=== PATIENT | female | born 1940 | race Caucasian/White ===

== ENCOUNTER → 2019-12-10 11:56 | Outpatient (CLI) | payer MEDICARE, SELFPAY ==
[2019-12-11 20:11] LABS: COVID19 Sendout Not Detected (Not Detect)
== END ==
PROVIDERS: PCP Internal Medicine; Visit Provider Physician Assistant
DX: Z11.59 Encounter for screening for other viral diseases (principal)
CPT/HCPCS: 87635

== ENCOUNTER 2019-12-13 09:49 | Outpatient (CLI) | payer MEDICARE, SELFPAY ==
[2019-12-13] VITALS (8 sets, daily range): BP systolic 140–156; BP diastolic 64–78; PULSE 55–67; RESP 8–18; O2SAT 99–100
--- NOTE | 2019-12-13 09:53 | DI.RAD.S_ITS ---
PROCEDURE: PAIN L/S FACET INJ/BLK 1ST LILO COMPARISON: [facility], RG, MRI L-SPINE W/O CONTRAST, 08/24/2019, 14:58. INDICATIONS: SPONDYLOSIS FINDINGS: These fluoroscopic images were performed for intraoperative localization. On these images, bilateral spinal needles can be seen at the L4-L5 and L5-S1 levels. The appropriate position of the tips of the needles was confirmed by injection of a small amount of iodinated contrast. IMPRESSION: Intraprocedural examination within normal limits. Dictated by: Braxton Main M.D. on 12/13/2019 at 10:50 Approved by: Braxton Main M.D. on 12/13/2019 at 10:52
[2019-12-13] MEDS: fentaNYL 100 MCG/2 ML INJ 50 MCG IV (11:09)
[2019-12-13] MEDS: MIDAZOLAM 5 MG/5 ML VIAL IV (11:09)
[2019-12-13] MEDS: IOPAMIDOL 15 ML VIAL 3 ML INJ (11:21)
[2019-12-13] MEDS: LIDOCAINE 1% 20 ML 10 ML INJ (11:22)
[2019-12-13] MEDS: BETAMETHASONE 30 MG/5 ML MDV 12 MG INJ (11:22)
[2019-12-13] MEDS: BUPIVACAINE 0.5% (PF) VIAL 2 ML INJ (11:22)
--- NOTE | 2019-12-13 11:26 | P.PCN_ITS ---
Date/Time/Diagnoses Date of procedure: 12/13/19 Time of procedure: 11:26 Pre-procedure diagnosis: 1. FACET ARTHROPATHY 2. AXIAL LBP 3. MULTILEVEL DDD Post-procedure diagnosis: same Procedure Notes Procedure: 1. FLUOROSCOPICALLY GUIDED CONTRAST CONTROLLED FACET JOINT INJECTIONS BILATERAL L4/5, L5/S1 Indications: Chelle is referred by Dr. Roe for treatment of Axial LBP Physician: Tate Jimenez Total Fluoroscopy time (seconds): 14 Total sedation minutes: 11 Complications: none Procedure in detail & Post-procedure care: FINDINGS Multilevel Facet Arthropathy with Clinically significant axial LBP DESCRIPTION OF PROCEDURE Fluoroscopically guided, contrast-controlled bilateral L4/5, L5/S1 facet joint injections. Following review of allergy and review of potential side effects and complications, including, but not necessarily limited to, infection, allergic reaction, local tissue breakdown, stroke, temporary or permanent nerve injury, paralysis, and possible , the patient indicated that the patient understood and agreed to proceed. An informed consent document was signed by the patient, witnessed by a nurse, and placed in the patient's chart. Additionally, other treatment options including medications, modalities, and physical therapy were reviewed with the patient. After review of previous anaesthesic history and IV conscious sedation the patie nt was deemed safe to proceed with today?s procedure with IV conscious sedation as ASA class II designation. Safety time-out was performed to confirm patient ID, procedure to be performed and site of procedure. IV sedation was accomplished with a combination of 2mg of Versed and 50mcg of Fentanyl was administered by the RN after DO order, titrated to patient comfort during the course of the procedure while the patient remained responsive to all verbal commands In the prone position, following sterile prep and drape of the lumbar region, the posterior aspect of the L4/5, L5/S1 facet joints were identified fluoroscopically. The skin was anesthetized via a 25-gauge 1.5inch needle with 1% lidocaine solution into the corresponding facet joints. At this point, a 22- gauge 3.5-inch spinal needle was atraumatically introduced and advanced under fluoroscopic guidance into the corresponding facet joints. Following negative aspiration, injections of approximately 0.2cc of Isovue 200 confirmed interarticular placement without vascular uptake. The identical procedure was then performed at the L4/5, L5/S1 facet joints on the left. Radiological data, including multiple fluoroscopic views of the lumbosacral spine, reveal a spinal needle at the L4/5, L5/S1 facet joints bilaterally. Subsequent views show flow of contrast material both superiorly and inferiorly within the joint space without vascular or intrathecal uptake. At this point, a total of 0.5cc including a mixture of 0.25cc Marcaine and 0.25cc betamethasone was injected without complication into each of the corresponding facet joints. The patient tolerated the procedure well without signs or symptoms of complications prior to transfer to the recovery area continued monitoring without incident. The patient was then transferred to the recovery area where they were observed for an appropriate period of time after the injection. The patient reported a VAS score of 7 prior to the procedure and a post- procedure VAS of 0. POST OP INSTRUCTIONS The patient was provided a Pain Log to continue to record their response to the target-specific procedure prior to follow-up visit with their referring physician. Additionally, specific post-injection care instructions and a contact number to our office were provided if concerns arise regarding possible complications associated with the procedure are suspected.
--- NOTE | 2019-12-13 15:41 | PC.NURSE ---
Fentanyl and versed given by this RN all other meds scanned given by Dr Jimenez. Patient was stable and transferred to [facility].
== END 2019-12-13 11:45 | disposition home or self-care (01) ==
LOC: RAD 09:52
PROVIDERS: PCP Internal Medicine; Referring Provider Physical Medicine & Rehabilitation; Visit Provider Physical Medicine & Rehabilitation
DX: M47.816 Spondylosis without myelopathy or radiculopathy, lumbar region (principal); M47.817 Spondylosis without myelopathy or radiculopathy, lumbosacral region; M54.5 Low back pain; M51.36 Other intervertebral disc degeneration, lumbar region; M51.37 Other intervertebral disc degeneration, lumbosacral region
CPT/HCPCS: 64493; 64494; 99152; J0702; J2250; J3010

== ENCOUNTER → 2020-02-18 14:55 | Outpatient (CLI) | payer MEDICARE, SELFPAY ==
[2020-02-20 08:26] LABS: COVID19 Sendout Not Detected (Not Detect)
== END ==
PROVIDERS: PCP Internal Medicine; Visit Provider Physician Assistant
DX: Z11.59 Encounter for screening for other viral diseases (principal)
CPT/HCPCS: 87635

== ENCOUNTER 2020-02-21 12:55 | Outpatient (CLI) | payer MEDICARE, SELFPAY ==
[2020-02-21] VITALS (10 sets, daily range): BP systolic 98–122; BP diastolic 56–65; PULSE 67–77; RESP 12–28; TEMP 36.2; O2SAT 94–100
--- NOTE | 2020-02-21 12:57 | DI.RAD.S_ITS ---
PROCEDURE: PAIN L/S FACET INJ/BLK 1ST LILO COMPARISON: [facility], RG, XR L-SPINE 2-3V, 06/27/2019, 10:21. [facility], XA, PAIN L/S FACET INJ/BLK 1ST LILO, 12/13/2019, 11:12. INDICATIONS: SPONDYLOSIS FINDINGS: 6 intraoperative fluoroscopy images are obtained, demonstrating needle placement at L3-L4 and L5 bilaterally. IMPRESSION: Fluoroscopy for pain management. Dictated by: Aisha Salcedo M.D. on 02/21/2020 at 15:32 Approved by: Aisha Salcedo M.D. on 02/21/2020 at 15:32
[2020-02-21] MEDS: MIDAZOLAM 5 MG/5 ML VIAL IV (14:32)
[2020-02-21] MEDS: BUPIVACAINE 0.5% (PF) VIAL 2 ML INJ (14:38)
[2020-02-21] MEDS: LIDOCAINE 1% 20 ML 10 ML INJ (14:38)
[2020-02-21] MEDS: IOPAMIDOL 15 ML VIAL 3 ML INJ (14:38)
--- NOTE | 2020-02-21 14:51 | P.PCN_ITS ---
Date/Time/Diagnoses Date of procedure: 02/21/20 Time of procedure: 14:52 Pre-procedure diagnosis: 1. FACET ARTHROPATHY Post-procedure diagnosis: same Procedure Notes Procedure: 1. BILATERAL L3, L4 AND L5 DIAGNOSTIC MB BLOCKS Indications: Chelle is referred by Dr. Roe for treatment of Bilateral Axial LBP. Physician: Tate Jimenez Total Fluoroscopy time (seconds): 11 Total sedation minutes: 17 Complications: none Procedure in detail & Post-procedure care: DESCRIPTION OF PROCEDURE Fluoroscopically guided, contrast-controlled bilateral L3, L4 and L5 medial branch blocks with 0.5cc of 0.5% Marcaine. Following review of allergy and review of potential side effects and complications, including, but not necessarily limited to, infection, allergic reaction, local tissue breakdown, nerve injury, paralysis, stroke and possible , the patient indicated that the patient understood and agreed to proceed. An informed consent document was signed by the patient, witnessed by a nurse, and placed in the patient's chart. After review of previous anaesthesic history and IV conscious sedation the patient was deemed safe to proceed with today's procedure with IV conscious sedation as ASA class II designation. Safety time-out was performed to confirm patient ID, procedure to be performed and site of procedure. IV sedation was accomplished with a combination of 2mg of Versed was administered by the RN after DO order, titrated to patient comfort during the course of the procedure while the patient remained responsive to all verbal commands In the prone position, following sterile prep and drape of the lumbar region, the right L3, L4 and L5 anatomical location of the medial branch of the dorsal ramus was identified fluoroscopically. Subsequently an anesthetic skin wheal using 1% lidocaine solution was initiated at each of the anatomical spots. Subsequently then a 22-gauge 3.5-inch spinal needle was atraumatically introduced and advanced under fluoroscopic guidance at each of the corresponding sites at the right L3, L4 and L5 MB. After negative aspiration, 0.2cc of Isovue 200 was injected, confirming placement without vascular or intrathecal uptake. Subsequently then 0.5cc of 0.5% Marcaine solution was injected at each of the corresponding sites at the right L3, L4 and L5 medial branch locations. The identical procedure was replicated on the left. The patient tolerated the procedure well without signs or symptoms of complications. The patient tolerated the procedure well without signs or symptoms of complications prior to transfer to the recovery area continued monitoring without incident. Post-procedure, the patient was monitored initiating provocative activities to measure the amount of relief from block of the facetogenic pain. The patient reported a VAS of 7 prior to the procedure and a post-procedure VAS of 1. It has been a pleasure to assist in the diagnostic and therapeutic care of your patient. POST OP INSTRUCTIONS The patient was provided with a Pain Log to complete over the next several hours and subsequent days prior to the patient's follow up with the ordering physician. 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 The patient is aware, was provided, once again, with a Pain Log and will follow up with the referring physician for review and clinical correlation
== END 2020-02-21 15:46 | disposition home or self-care (01) ==
LOC: RAD 12:55
PROVIDERS: PCP Internal Medicine; Referring Provider Internal Medicine; Visit Provider Physical Medicine & Rehabilitation
DX: M47.816 Spondylosis without myelopathy or radiculopathy, lumbar region (principal); M54.5 Low back pain
CPT/HCPCS: 64493; 64494; 99152; J2250; J3010